=== PATIENT | male | born 1955 | race Caucasian/White ===

== ENCOUNTER 2017-11-13 05:30 | Inpatient (IN) ==
--- NOTE | 2017-11-13 05:58 | Emergency Department Note ---
Disposition Clinical Impression: Right ear pain, Weakness Disposition: Still a Patient Condition: Good [facility] Care Provider[facility] - Forms: ED Satisfaction Letter Time of Disposition: 06:13 General Adult HPI - General Chief complaint: ED Dizziness Stated complaint: dizziness Time Seen by Provider: 11/13/17 05:31 Source: patient, EMS Limitations: no limitations Nursing Notes Reviewed: Yes Vital Signs Reviewed: Yes - History of Present Illness HPI Narrative: 62-year-old male smoker complains of weakness, and right ear pain. He arrives via squad from [facility]. He states his ear pain started to hurt about a week ago and has become more weak. He describes sensation of dizziness with the room spinning, and weakness when he goes to stand. He describes fevers chills, and a productive cough. Harish had reported his security professional and the prison called them, and she had reported patient has been more confused and dizzy the past week. Nursing reports that they also reported patient is at his baseline specifically with his unsteady gait. He denies near syncopal symptoms , chest pain, abdominal pain, weakness, vision changes, speech changes, injuries or falls. Pain Scale: 0 - Related Data Allergies Allergy/AdvReac Type Severity Reaction Status Date / Time No Known Allergies Allergy Verified 08/15/16 16:54 All systems ED: reviewed and negative except as stated. Review of Systems: As Per HPI Constitutional: Reports: as per HPI Eyes: Denies: vision change ENT ED: Reports: as per HPI Cardiovascular: Denies: chest pain, palpitations Respiratory: Denies: dyspnea Gastrointestinal: Denies: abdominal pain, nausea, vomiting, diarrhea, constipation Genitourinary: Denies: dysuria Musculoskeletal: Denies: back pain Integumentary: Denies: rash Neurological: Denies: headache, weakness, numbness, paresthesias Psychiatric: Denies: anxiety Endocrine: Denies: fatigue Hematological/Lymphatic: Denies: easy bleeding Allergic/Immunologic: Denies: facial swelling Past Medical History - Past Medical History Medical history: Reports: COPD, coronary artery disease, GERD, hyperlipidemia, hypertension, renal disease, syncope, other Psychiatric history: Reports: anxiety, depression, schizophrenia - Social History Smoking Status: Current every day smoker Smokeless Tobacco Status: No Alcohol use: Reports: none Drug use: Reports: none Physical Exam - General Limitations: no limitations General appearance: alert, in no apparent distress - Head Head exam: atraumatic, normocephalic - Eye Eye exam: Present: EOMI. Absent: conjunctival injection - ENT ENT exam: normal oropharynx, mucous membranes moist - Expanded ENT Exam TM/Canal: Canal tenderness: Right TM - Neck Neck exam: Present: normal inspection. Absent: full ROM, tenderness, meningismus, lymphadenopathy - Chest Chest inspection: Present: symmetric chest wall rise - Respiratory Respiratory exam: Present: normal lung sounds bilaterally. Absent: respiratory distress, wheezes, stridor, accessory muscle use - Cardiovascular Cardiovascular exam: Present: regular rate, normal rhythm - Abdominal Exam Abdominal exam: Present: soft, Non-Tender - Extremities Exam Extremities exam: Present: normal capillary refill. Absent: tenderness - Back Exam Back exam: Present: full ROM. Absent: tenderness - Neurological Exam Neurological exam: Present: alert, oriented X3 - Psychiatric Psychiatric exam: Present: normal mood, flat affect - Skin Skin exam: Present: warm, dry, intact, normal color. Absent: rash, cyanosis, diaphoresis Course Course Narrative: Pt arrives via squad from prison. 62yo male smoker c/o weakness, R ear pain. Nursing reports patient has some chronic gait instability and urinary incontinence, and squad reports one of pt's caregivers reports this is baseline , but it is reported he has been more confused. Pt c/o right ear pain and weakness x1week. Otherwise no other concerns. Pt seen and examined. He is alert and oriented x3, and in no acute distress. Somewhat listless but responding appropriately. Abdomen nontender, lungs CTA, HRRR. No extremity weakness, facial asymetry. He denies CP, SOB, abdominal pain. Vitals today within normal limits. Bloodwork, EKG, UA, CXR orderd. Pt discussed with oncoming dayshift provider Hiram Waters CNP. Due to shift change Hiram will be taking over care of patient. Please see his documentation for details and final disposition. Vital Signs Temperature 98.8 F 11/13/17 05:34 Pulse Rate 96 11/13/17 05:34 Respiratory Rate 16 11/13/17 05:34 Blood Pressure 119/72 11/13/17 05:34 O2 Sat by Pulse Oximetry 92 11/13/17 05:34 Temperature 98.8 F 11/13/17 05:34 Pulse Rate 96 11/13/17 05:34 Respiratory Rate 16 11/13/17 05:34 Blood Pressure 119/72 11/13/17 05:34 O2 Sat by Pulse Oximetry 92 11/13/17 05:34 Oxygen Delivery Oxygen Delivery Room Air S.B.AJustin - SPatti.AJustin Situation: Demographics, MOA Background: Presenting Complaint Assessment: Vital Signs, Exam Concerns, Outstanding Labs Recommendation: Recommendation based on pending studies, treatments, or consults S.B.A.RHoma Report Given to: Hiram Waters CNP S.B.AJustin Repor Time: 06:06
--- NOTE | 2017-11-13 06:24 | Emergency Department Note ---
Disposition Clinical Impression: Dizziness, Weakness generalized, Unsteady gait, Frequent falls Disposition: Admitted As Inpatient Condition: Fair [facility] Care Provider[facility] - Forms: ED Satisfaction Letter Time of Disposition: 10:28 General Adult HPI - General Chief complaint: ED Dizziness Stated complaint: dizziness Time Seen by Provider: 11/13/17 05:31 Source: patient, EMS Limitations: no limitations - History of Present Illness Pain Scale: 0 - Related Data Allergies Allergy/AdvReac Type Severity Reaction Status Date / Time No Known Allergies Allergy Verified 08/15/16 16:54 Constitutional: Reports: as per HPI Eyes: Denies: vision change ENT ED: Reports: as per HPI Cardiovascular: Denies: chest pain, palpitations Respiratory: Denies: dyspnea Gastrointestinal: Denies: abdominal pain, nausea, vomiting, diarrhea, constipation Genitourinary: Denies: dysuria Musculoskeletal: Denies: back pain Integumentary: Denies: rash Neurological: Denies: headache, weakness, numbness, paresthesias Psychiatric: Denies: anxiety Endocrine: Denies: fatigue Hematological/Lymphatic: Denies: easy bleeding Allergic/Immunologic: Denies: facial swelling Past Medical History - Past Medical History Medical history: Reports: COPD, coronary artery disease, GERD, hyperlipidemia, hypertension, renal disease, syncope, other Psychiatric history: Reports: anxiety, depression, schizophrenia - Social History Smoking Status: Current every day smoker Smokeless Tobacco Status: No Alcohol use: Reports: none Drug use: Reports: none Physical Exam - General Limitations: no limitations General appearance: alert, in no apparent distress Course Course Narrative: 0600: I assumed care of this patient from [facility] due to mid-level shift change. Please see Juanjo's documentation for any care performed prior to my arrival. Briefly, this is alert and oriented 62-year-old male arrives by squad from an outside residential with complaints of weakness, dizziness, and right ear pain for the past one week. The patient stated that there was a sensation of dizziness and the room was spinning whenever he attempted to stand up. He denied any chest pain, shortness of breath, abdominal pain, weakness of the extremities, lower vision, speech deficits, or any injury/fall/trauma. He did complain of subjective fevers, chills, and a productive cough for the past several days. Vital Signs Temperature 98.8 F 11/13/17 05:34 Pulse Rate 96 11/13/17 05:34 Respiratory Rate 16 11/13/17 05:34 Blood Pressure 119/72 11/13/17 05:34 O2 Sat by Pulse Oximetry 92 11/13/17 05:34 Temperature 98.8 F 11/13/17 05:34 Pulse Rate 84 11/13/17 09:14 Respiratory Rate 18 11/13/17 09:14 Blood Pressure 96/48 11/13/17 09:14 O2 Sat by Pulse Oximetry 94 11/13/17 09:14 Oxygen Delivery Oxygen Delivery Nasal Cannula Medical Decision Making - MDM Narrative Medical decision making narrative: The patient does have a history of vertigo. His symptoms seem vertiginous in nature. He describes a sensation of his surroundings spinning upon positional changes. When the patient's nurse attempted to perform orthostatic vital signs , she stated that the patient was extremely weak, she had to assist him from the bed to a standing position. She stated that he was extremely unsteady on his feet. The social service liaison at the [facility] states that she has been told patient has had multiple falls as of lately. Our social service liaison here has attempted to place the patient into the rehabilitation unit at the [facility] however he will need an official PT/OT evaluation in-house here prior to. His workup has been benign aside from a mildly decreased potassium level which has been corrected. We will admit to the hospital service for a PT OT evaluation and observation. I discussed this plan with Dr. Rodriguez. Dr. Rodriguez has had a [id number] evaluation and agrees with this plan. I spoke with Dr. Avendano of the hospitalist service who is agreed to accept the patient for admission under his care. - Medical Records Medical records reviewed: Yes I reviewed the patient's medical records. - Lab Data Lab results reviewed: Yes I reviewed the patient's lab results. Lab results narrative: Laboratory Last Values WBC 7.5 K/mcL (4.3-11.1) 11/13/17 06:29 RBC 3.06 M/mcL (4.19-5.50) L 11/13/17 06:29 Hgb 10.1 g/dL (12.9-16.9) L 11/13/17 06:29 Hct 30.5 % (37.5-50.1) L 11/13/17 06:29 MCV 99.7 fL (83.0-100.0) 11/13/17 06:29 MCH 33.0 pg (28.0-33.3) 11/13/17 06:29 MCHC 33.1 g/dL (31.6-35.5) 11/13/17 06:29 RDW 12.3 % (11.5-14.5) 11/13/17 06:29 Plt Count 80 K/mcL (140-400) L 11/13/17 06:29 MPV 9.5 fL (9.4-12.4) 11/13/17 06:29 Immature Gran % 0.5 % (0-4) 11/13/17 06: Seg Neutrophils % 54.5 % 11/13/17 06:29 Lymphocytes % 19.5 % 11/13/17 06:29 Monocytes % 25.1 % 11/13/17 06:29 Eosinophils % 0.1 % 11/13/17 06: Basophils % 0.3 % 11/13/17 06:29 Neutrophils # 4.1 K/mcL (1.6-8.9) 11/13/17 06:29 Lymphocytes # 1.5 K/mcL (0.6-4.6) 11/13/17 06:29 Monocytes # 1.9 K/mcL (0.0-1.3) H 11/13/17 06:29 Eosinophils # 0.0 K/mcL (0.0-0.6) 11/13/17 06:29 Basophils # 0.0 K/mcL (0.0-0.2) 11/13/17 06:29 Platelet Estimate Decreased (Normal) L 11/13/17 06:29 Immature Plt Fraction 1.5 % (1.1-6.1) 11/13/17 06:29 Sodium 137 mEq/L (136-145) 11/13/17 06:29 Potassium 3.3 mEq/L (3.5-5.1) L 11/13/17 06:29 Chloride 109 mEq/L (98-107) H 11/13/17 06:29 Carbon Dioxide 25 mEq/L (23-29) 11/13/17 06:29 BUN 17 mg/dL (8-23) 11/13/17 06:29 Creatinine 1.52 mg/dL (0.70-1.30) H 11/13/17 06:29 Est GFR ( Amer) 56 (> 60) L 11/13/17 06:29 Est GFR (Non-Af Amer) 47 (> 60) L 11/13/17 06:29 BUN/Creatinine Ratio 11 (6-26) 11/13/17 06:29 Glucose 114 mg/dL (70-105) H 11/13/17 06:29 Calculated Osmolality 286 (280-300) 11/13/17 06:29 Lactic Acid 1.0 mmol/L (0.5-2.2) 11/13/17 06:31 Calcium 8.4 mg/dL (8.6-10.3) L 11/13/17 06:29 Total Bilirubin 0.9 mg/dL (0.3-1.0) 11/13/17 06:29 Direct Bilirubin 0.3 mg/dL (0.0-0.2) H 11/13/17 06:29 Indirect Bilirubin 0.6 mg/dL (0.0-1.2) 11/13/17 06:29 AST 10 Units/L (13-39) L 11/13/17 06:29 ALT 5 Units/L (7-52) L 11/13/17 06:29 Alkaline Phosphatase 43 Units/L (34-104) 11/13/17 06:29 Troponin I < 0.03 ng/mL (< 0.04) 11/13/17 06:29 Serum Total Protein 6.0 g/dL (6.4-8.9) L 11/13/17 06:29 Albumin 3.2 g/dL (3.5-5.7) L 11/13/17 06:29 Globulin 2.8 g/dL (2.4-3.5) 11/13/17 06:29 Albumin/Globulin Ratio 1.1 (1.1-2.2) 11/13/17 06:29 Urine Color Yellow (Yellow) 11/13/17 07:54 Urine Clarity Clear (Clear) 11/13/17 07:54 Urine pH 6.0 pH Units (5.0-8.0) 11/13/17 07:54 Ur Specific [place] 1.009 (1.010-1.025) L 11/13/17 07:54 Urine Protein 30 mg/dL (Neg-Trace) H 11/13/17 07:54 Urine Glucose (UA) Normal mg/dL (Normal) 11/13/17 07:54 Urine Ketones Negative mg/dL (Negative) 11/13/17 07:54 Urine Blood Moderate (Negative) H 11/13/17 07:54 Urine Nitrite Negative (Negative) 11/13/17 07:54 Urine Bilirubin Negative (Negative) 11/13/17 07:54 Urine Urobilinogen Normal mg/dL (Normal) 11/13/17 07:54 Ur Leukocyte Esterase Negative (Negative) 11/13/17 07:54 Urine Microscopic RBC 5-15 per hpf (0-3) H 11/13/17 07:54 Urine Microscopic WBC 5-15 per hpf (0-3) H 11/13/17 07:54 Ur Squamous Epith Cells Many per lpf (None-Few) H 11/13/17 07:54 Urine Bacteria None Seen per hpf (None-Few) 11/13/17 07:54 Hyaline Casts None Seen per lpf (None-Few) 11/13/17 07:54 Ur Culture Indicated? NO (NO) 11/13/17 07:54 Stool Occult Blood Negative (Negative) 11/13/17 08:02 Result diagrams: 11/13/17 06:29 11/13/17 06:29 Lab Results 11/13/17 11/13/17 11/13/17 Range/Units 06:29 06:29 06:29 WBC 7.5 (4.3-11.1) K/mcL RBC 3.06 L (4.19-5.50) M/mcL Hgb 10.1 L (12.9-16.9) g/dL Hct 30.5 L (37.5-50.1) % MCV 99.7 (83.0-100.0) fL MCH 33.0 (28.0-33.3) pg MCHC 33.1 (31.6-35.5) g/dL RDW 12.3 (11.5-14.5) % Plt Count 80 L (140-400) K/mcL MPV 9.5 (9.4-12.4) fL Immature Gran % 0.5 (0-4) % Seg Neutrophils % 54.5 % Lymphocytes % 19.5 % Monocytes % 25.1 % Eosinophils % 0.1 % Basophils % 0.3 % Neutrophils # 4.1 (1.6-8.9) K/mcL Lymphocytes # 1.5 (0.6-4.6) K/mcL Monocytes # 1.9 H (0.0-1.3) K/mcL Eosinophils # 0.0 (0.0-0.6) K/mcL Basophils # 0.0 (0.0-0.2) K/mcL Platelet Estimate Decreased L (Normal) Immature Plt Fraction 1.5 (1.1-6.1) % Sodium 137 (136-145) mEq/L Potassium 3.3 L (3.5-5.1) mEq/L Chloride 109 H (98-107) mEq/L Carbon Dioxide 25 (23-29) mEq/L BUN 17 (8-23) mg/dL Creatinine 1.52 H (0.70-1.30) mg/dL Est GFR ( Amer) 56 L (> 60) Est GFR (Non-Af Amer) 47 L (> 60) BUN/Creatinine Ratio 11 (6-26) Glucose 114 H (70-105) mg/dL Calculated Osmolality 286 (280-300) Lactic Acid (0.5-2.2) mmol/L Calcium 8.4 L (8.6-10.3) mg/dL Total Bilirubin 0.9 (0.3-1.0) mg/dL Direct Bilirubin 0.3 H (0.0-0.2) mg/dL Indirect Bilirubin 0.6 (0.0-1.2) mg/dL AST 10 L (13-39) Units/L ALT 5 L (7-52) Units/L Alkaline Phosphatase 43 (34-104) Units/L Troponin I < 0.03 (< 0.04) ng/mL Serum Total Protein 6.0 L (6.4-8.9) g/dL Albumin 3.2 L (3.5-5.7) g/dL Globulin 2.8 (2.4-3.5) g/dL Albumin/Globulin Ratio 1.1 (1.1-2.2) Urine Color (Yellow) Urine Clarity (Clear) Urine pH (5.0-8.0) pH Units Ur Specific [place] (1.010-1.025) Urine Protein (Neg-Trace) mg/dL Urine Glucose (UA) (Normal) mg/dL Urine Ketones (Negative) mg/dL Urine Blood (Negative) Urine Nitrite (Negative) Urine Bilirubin (Negative) Urine Urobilinogen (Normal) mg/dL Ur Leukocyte Esterase (Negative) Urine Microscopic RBC (0-3) per hpf Urine Microscopic WBC (0-3) per hpf Ur Squamous Epith Cells (None-Few) per lpf Urine Bacteria (None-Few) per hpf Hyaline Casts (None-Few) per lpf Ur Culture Indicated? (NO) Stool Occult Blood (Negative) 11/13/17 11/13/17 11/13/17 Range/Units 06:31 07:54 08:02 WBC (4.3-11.1) K/mcL RBC (4.19-5.50) M/mcL Hgb (12.9-16.9) g/dL Hct (37.5-50.1) % MCV (83.0-100.0) fL MCH (28.0-33.3) pg MCHC (31.6-35.5) g/dL RDW (11.5-14.5) % Plt Count (140-400) K/mcL MPV (9.4-12.4) fL Immature Gran % (0-4) % Seg Neutrophils % % Lymphocytes % % Monocytes % % Eosinophils % % Basophils % % Neutrophils # (1.6-8.9) K/mcL Lymphocytes # (0.6-4.6) K/mcL Monocytes # (0.0-1.3) K/mcL Eosinophils # (0.0-0.6) K/mcL Basophils # (0.0-0.2) K/mcL Platelet Estimate (Normal) Immature Plt Fraction (1.1-6.1) % Sodium (136-145) mEq/L Potassium (3.5-5.1) mEq/L Chloride (98-107) mEq/L Carbon Dioxide (23-29) mEq/L BUN (8-23) mg/dL Creatinine (0.70-1.30) mg/dL Est GFR ( Amer) (> 60) Est GFR (Non-Af Amer) (> 60) BUN/Creatinine Ratio (6-26) Glucose (70-105) mg/dL Calculated Osmolality (280-300) Lactic Acid 1.0 (0.5-2.2) mmol/L Calcium (8.6-10.3) mg/dL Total Bilirubin (0.3-1.0) mg/dL Direct Bilirubin (0.0-0.2) mg/dL Indirect Bilirubin (0.0-1.2) mg/dL AST (13-39) Units/L ALT (7-52) Units/L Alkaline Phosphatase (34-104) Units/L Troponin I (< 0.04) ng/mL Serum Total Protein (6.4-8.9) g/dL Albumin (3.5-5.7) g/dL Globulin (2.4-3.5) g/dL Albumin/Globulin Ratio (1.1-2.2) Urine Color Yellow (Yellow) Urine Clarity Clear (Clear) Urine pH 6.0 (5.0-8.0) pH Units Ur Specific [place] 1.009 L (1.010-1.025) Urine Protein 30 H (Neg-Trace) mg/dL Urine Glucose (UA) Normal (Normal) mg/dL Urine Ketones Negative (Negative) mg/dL Urine Blood Moderate H (Negative) Urine Nitrite Negative (Negative) Urine Bilirubin Negative (Negative) Urine Urobilinogen Normal (Normal) mg/dL Ur Leukocyte Esterase Negative (Negative) Urine Microscopic RBC 5-15 H (0-3) per hpf Urine Microscopic WBC 5-15 H (0-3) per hpf Ur Squamous Epith Cells Many H (None-Few) per lpf Urine Bacteria None Seen (None-Few) per hpf Hyaline Casts None Seen (None-Few) per lpf Ur Culture Indicated? NO (NO) Stool Occult Blood Negative (Negative) - Radiology Data Radiology results reviewed: Yes I reviewed the patient's radiology results. Chest X-Ray 11/13/17 06:03 IMPRESSION: Low lung volume study without acute process. D/ / Camille Lau MD / Camille Lau MD Interpreting Provider: Camille Lau MD Head CT 11/13/17 09:14 IMPRESSION: No evidence of acute intracranial abnormality. D/ / 11/13/2017 10:08:32 Tio Maddox MD / Cheyanne Garcia Interpreting Provider: Tio Maddox MD - EKG Data EKG #1 EKG attestation: Yes I reviewed and interpreted this EKG. EKG results narrative: EKG reviewed by Dr. Hunt as well. EKG shows a sinus rhythm at a rate of 88 bpm. IN interval 139, QRS duration 109, QT/QTc intervals 281/326. No ectopy noted. No STEMI. No significant changes compared to an EKG dated from 09/14/14 aside from some flattening of T waves in the lateral leads.
[2017-11-13 06:38] LABS: Basophils % 0.3 %; Eosinophils % 0.1 %; Hematocrit 30.5 % (37.5-50.1)
[2017-11-13 06:40] LABS: Hemoglobin 10.1 g/dL (12.9-16.9); Immature Granulocytes % 0.5 % (0-4); Immature Platelets 1.5 % (1.1-6.1); Lymphocytes # 1.5 K/mcL (0.6-4.6); Lymphocytes % 19.5 %; Mean Corpuscular HGB Conc 33.1 g/dL (31.6-35.5); Mean Corpuscular Volume 99.7 fL (83.0-100.0); Mean Platelet Volume 9.5 fL (9.4-12.4); Monocytes # 1.9 K/mcL (0.0-1.3); Monocytes % 25.1 %; Neutrophils # 4.1 K/mcL (1.6-8.9); Red Blood Count 3.06 M/mcL (4.19-5.50); Red Cell Distribution Width 12.3 % (11.5-14.5); Segmented Neutrophils % 54.5 %
[2017-11-13 06:58] LABS: Albumin 3.2 g/dL (3.5-5.7); Albumin/Globulin Ratio 1.1 (1.1-2.2); Bilirubin,Direct 0.3 mg/dL (0.0-0.2); Bilirubin,Indirect 0.6 mg/dL (0.0-1.2); Bilirubin,Total 0.9 mg/dL (0.3-1.0); Calcium 8.4 mg/dL (8.6-10.3); Globulin 2.8 g/dL (2.4-3.5); Potassium 3.3 mEq/L (3.5-5.1)
[2017-11-13 07:30] LABS: Platelet Count 80 K/mcL (140-400)
[2017-11-13 07:58] LABS: Platelet Estimate Decreased (Normal)
[2017-11-13 08:03] LABS: Bilirubin,Urine Negative (Negative); Blood,Urine Moderate (Negative); Clarity,Urine Clear (Clear); Color,Urine Yellow (Yellow); Glucose,Urine (UA) Normal (Normal); Ketones,Urine Negative (Negative); Leukocyte Esterase,Urine Negative (Negative); Nitrite,Urine Negative (Negative); Protein,Urine 30 mg/dL (Neg-Trace); Specific Gravity,Urine 1.009 (1.010-1.025); Urobilinogen,Urine Normal (Normal)
[2017-11-13] MEDS ORDERED: 0.9 % Sodium Chloride 1,000 ML IVC ONE (08:04)
[2017-11-13 08:05] LABS: Bacteria,Urine None Seen per hpf (None-Few); Hyaline Casts,Urine None Seen per lpf (None-Few); Squamous Epithelial Cell,Urine Many per lpf (None-Few)
[2017-11-13] MEDS ORDERED: Ondansetron 4 MG/2 ML VIAL IVP ONE (10:33)
--- NOTE | 2017-11-13 10:33 | Emergency Department Note ---
START Narrative - START START: I examined this patient and my medical decision-making was reviewed with the Resident Physician. I agree with the documented findings, disposition and treatment plan as described except to the extent set forth below. 62-year-old male presents to emergency room for dizziness and vertigo. Patient states he is unable to get around well at home as he feels too dizzy to even walk. His a history of vertigo symptoms in the past. His workup in the ER is essentially unremarkable. Imaging was negative. Patient is unable to care for himself well at home. Patient will be admitted for treatment of this dizziness and vertigo continued workup and possible PT OT consult.
--- NOTE | 2017-11-13 10:44 | Internal Med History&Physical ---
Date of Encounter: 11/13/17 Time of Encounter: 10:40 Assessment and Plan (1) COPD (chronic obstructive pulmonary disease) Current visit: Yes Status: Chronic No active wheezing Qualifiers: COPD type: emphysema Emphysema type: unspecified Qualified Code(s): J43.9 - Emphysema, unspecified (2) HTN (hypertension) Current visit: Yes Status: Chronic We will control blood pressure is low Qualifiers: Hypertension type: essential hypertension Qualified Code(s): I10 - Essential (primary) hypertension (3) CKD (chronic kidney disease) Current visit: Yes Status: Chronic IV hydration Qualifiers: Chronic kidney disease stage: stage 2 (mild) Qualified Code(s): N18.2 - Chronic kidney disease, stage 2 (mild) (4) Anxiety with depression Current visit: Yes Status: Chronic Chronic with history of schizophrenia (5) Hypokalemia Current visit: Yes Status: Acute Has been replaced in the ER will recheck in a.m. (6) Hyperlipidemia Current visit: Yes Status: Chronic Chronic recheck in a.m. Qualifiers: Hyperlipidemia type: pure hypercholesterolemia Qualified Code(s): E78.00 - Pure hypercholesterolemia, unspecified; E78.0 - Pure hypercholesterolemia (7) Dizziness Current visit: Yes Status: Acute Abnormal gait with recurrent fall possible vestibular dysfunction versus posterior circulation TIA (8) Frequent falls Current visit: Yes Status: Acute Recurrent for due to abnormal gait and generalized weakness will obtain PT OT and patient may need rehabilitation (9) Unsteady gait Current visit: Yes Status: Acute Suggestive of posterior circulation dysfunction will obtain MRI and neurology consult Internal Medicine - H&P: HPI Chief complaint: recurrent falls Admitted From: Emergency Dept Plans for Post Hospital Care: Home History of present illness: Mr. Barrientos is a 62 year old male Patient sent from [facility]to Emergency room due to recurrent and frequent falls patient had history of schizophrenia, CK D, vertigo, COPD, CAD , GERD, high cholesterol, hypertension, depression and anxiety Patient has been having unsteady gait and feeling very weak so when he gets up he said he feels very weak and when he tried to walk has unsteady gaits and then falls no syncope s. No vertigo per se and no nausea or vomiting has some fever and a cough which is nonproductive patient had workup in the emergency room here CT of the head was negative he was not hypotensive patient shaking but not typical of Parkinson patient been admitted for follow up evaluation, would need PTOT physical therapy and probably neurology consult. Past Med Surg Social Fam HX - Past Medical History Medical history: COPD, coronary artery disease, GERD, hyperlipidemia, hypertension, renal disease, syncope, other Psychiatric history: anxiety, depression, schizophrenia - Social History Smoking Status: Current every day smoker Smokeless Tobacco Status: No Alcohol use: none Drug use: none Internal Medicine - H&P: Meds 3 Allergy/AdvReac Type Severity Reaction Status Date / Time No Known Allergies Allergy Verified 08/15/16 16:54 All Systems PM: A 10-system review of systems was performed and is negative for pertinent findings except as documented above in the HPI. - Constitutional Constitutional: fatigue, falls - EENT Eyes: no change in vision, no discharge, no pain, no photophobia Nose, mouth and throat: no dysphagia, no nasal discharge, no neck pain, no sore throat - Cardiovascular Cardiovascular ROS IM: no chest pain, no diaphoresis, no dyspnea, no lightheadedness, no palpitations, no syncope - Respiratory Respiratory: cough, dyspnea, no wheezing, no excessive phlegm production - Gastrointestinal Gastrointestinal: no abdominal pain, no diarrhea, no hematemesis, no hematochezia, no melena, no nausea, no vomiting - Integumentary Integumentary IM: no rash, no unusual bruising - Constitutional Vitals: Temp Pulse Resp BP Pulse Ox 98.8 F 84 18 96/48 94 11/13/17 05:34 11/13/17 09:14 11/13/17 09:14 11/13/17 09:14 11/13/17 09:14 General appearance: Present: cooperative, answers questions appropriately - Eye Eye exam: Present: PERRL, conjuntiva pink, sclera anicteric Pupils: Present: PERRL - Respiratory Respiratory exam: Present: CTAB. Absent: accessory muscle use, rales, rhonchi, wheezes - Cardiovascular Cardiovascular exam: Present: RRR, +S1, +S2. Absent: diastolic murmur, gallop, rubs, systolic murmur - GI/Abdominal GI/Abdominal exam: Present: normal bowel sounds, soft, no peritoneal signs. Absent: distended, tenderness - Extremities Exam Extremities exam: Present: warm, radial pulses palpable and symmetrical. Absent : calf tenderness, cyanotic, pedal edema Internal Med - H&P Results - Labs CBC & Chem 7: 11/13/17 06:29 11/13/17 06:29 Labs: Short CBC 11/13/17 Range/Units 06:29 WBC 7.5 (4.3-11.1) K/mcL Hgb 10.1 L (12.9-16.9) g/dL Hct 30.5 L (37.5-50.1) % Plt Count 80 L (140-400) K/mcL Neutrophils # 4.1 (1.6-8.9) K/mcL BMP 11/13/17 06:29 Sodium 137 Potassium 3.3 L Chloride 109 H Carbon Dioxide 25 BUN 17 Creatinine 1.52 H Glucose 114 H Calcium 8.4 L Cardiac Enzymes 11/13/17 Range/Units 06:29 Troponin I < 0.03 (< 0.04) ng/mL Liver Function 11/13/17 Range/Units 06:29 Total Bilirubin 0.9 (0.3-1.0) mg/dL Direct Bilirubin 0.3 H (0.0-0.2) mg/dL AST 10 L (13-39) Units/L ALT 5 L (7-52) Units/L Alkaline Phosphatase 43 (34-104) Units/L Albumin 3.2 L (3.5-5.7) g/dL Urine 11/13/17 Range/Units 07:54 Urine Color Yellow (Yellow) Urine Clarity Clear (Clear) Urine pH 6.0 (5.0-8.0) pH Units Ur Specific [place] 1.009 L (1.010-1.025) Urine Protein 30 H (Neg-Trace) mg/dL Urine Glucose (UA) Normal (Normal) mg/dL - Impressions ITS Impressions Chest X-Ray 11/13/17 06:03 IMPRESSION: Low lung volume study without acute process. D/ / Camille Lau MD / Camille Lau MD Interpreting Provider: Camille Lau MD Head CT 11/13/17 09:14 IMPRESSION: No evidence of acute intracranial abnormality. D/ / 11/13/2017 10:08:32 Tio Maddox MD / Cheyanne Garcia Interpreting Provider: Tio Maddox MD
[2017-11-13] MEDS ORDERED: Naloxone 0.4 MG/ML INJ IVP PRN (10:51)
--- NOTE | 2017-11-13 11:38 | Neurology - Consult Note ---
<Alo Valentine - Last Filed: 11/13/17 15:56> Date of Encounter: 11/13/17 Time of Encounter: 11:34 Assessment and Plan (1) Unsteady gait Current Visit: Yes Status: Acute Patient reports a several week history of dizziness and unsteady on his feet. On exam he does appear somewhat weak globally as well as difficulty on finger to nose and heel to main testing. Patient also noted to have bradykinesis with cogwheel rigidity and mild resting tremor. Parkinson's disease is a strong possibility. Could be indicative of a posterior circulation CVA as well. Medication interaction including neuroleptic malignant syndrome is considered although the patient does not have a fever, confusion, or significant rigidity so this is felt to be less likely. Patient is also noted to have chronic low back pain but no acute changes in his pain in his lower back or new pain in his lower legs make lumbar pathology less likely as well. Agree with obtaining MRI of the brain and MRA of the head and neck. Will check B12, folate, methylmalonic acid as well as CK. Metabolic disorders including electrolyte abnormalities and infection could also be contributing so recommend potassium replacement and workup for possible ongoing infection. (2) Frequent falls Current Visit: Yes Status: Acute (3) Schizophrenia Current Visit: Yes Status: Acute Qualifiers: Schizophrenia type: unspecified Qualified Code(s): F20.9 - Schizophrenia, unspecified History of Present Illness Chief complaint: Weakness HPI: Mr. Barrientos is a 62 year old male with history of schizophrenia, CKD who presents with unsteady gait. Patient states that for the last 3 or 4 weeks he has had dizziness with standing and difficulty walking due to feeling unsteady. He states that this feels as if the room is spinning. States he has never had anything like this before. He states he feels weak in his lower extremities. He denies any headache or sensory changes. Although he is legally blind he denies any changes in his vision. He denies back pain, bowel or bladder dysfunction. Denies fever, chills, chest pain, shortness of breath. Past Med Surg Social Fam HX - Past Medical History Medical history: COPD, coronary artery disease, GERD, hyperlipidemia, hypertension, renal disease, syncope, other Psychiatric history: anxiety, depression, schizophrenia - Social History Smoking Status: Current every day smoker Smokeless Tobacco Status: No Alcohol use: none Drug use: none Medications and Allergies Unable To Obtain [Unable to Obtain] 11/13/17 [History] 3 Allergy/AdvReac Type Severity Reaction Status Date / Time No Known Allergies Allergy Verified 08/15/16 16:54 All Systems: A 10-system review of systems was performed and is negative for pertinent findings except as documented above in the HPI. Physical Examination - Vital Signs Vital Signs: Initial Vital Signs Temp Pulse Resp BP Pulse Ox 98.8 F 96 16 119/72 92 11/13/17 05:34 11/13/17 05:34 11/13/17 05:34 11/13/17 05:34 11/13/17 05:34 - Exam Exam: Patient has some bradykinesia when attempting rapid alternating movements and has difficulty in performing finger-nose testing and [id number] testing. - Constitutional General appearance: comfortable, chronically ill - Neurologic Sensorimotor examination: intact Motor examination - right side: 4/5: deltoids, biceps, triceps, wrist flexion, wrist extension, soaking pits supervisor, hip flexors, tibialis Anterior, quadriceps, toe extension (EHL), plantarflexion Motor examination - left side: 4/5: deltoids, biceps, triceps, wrist flexion, wrist extension, hip flexors, soaking pits supervisor, quadriceps, tibialis Anterior, toe extension (EHL), plantarflexion Detailed sensory examination: intact Reflexes: Biceps: 0, Brachioradialis: 0, Patella: 0, Achilles: 0 Mental Status Examination: awake, alert, oriented to person, oriented to place, oriented to time, follows commands appropriately, answers questions appropriately, no agnosia, no aphasia, no aproxia Cranial nerve examination: EOMI, visual jorge intact, sensory to face intact, mastication intact, no facial asymmetry is present, flexes SCM and trapezius muscles symmetrically with full power, tongue protrudes midline, no atrophy or facial fasiculations present Results - Laboratory Findings CBC and BMP: 11/13/17 06:29 11/13/17 06:29 Abnormal lab findings: Abnormal lab results RBC 3.06 M/mcL (4.19-5.50) L 11/13/17 06:29 Hgb 10.1 g/dL (12.9-16.9) L 11/13/17 06:29 Hct 30.5 % (37.5-50.1) L 11/13/17 06:29 Plt Count 80 K/mcL (140-400) L 11/13/17 06:29 Monocytes # 1.9 K/mcL (0.0-1.3) H 11/13/17 06:29 Platelet Estimate Decreased (Normal) L 11/13/17 06:29 Potassium 3.3 mEq/L (3.5-5.1) L 11/13/17 06:29 Chloride 109 mEq/L (98-107) H 11/13/17 06:29 Creatinine 1.52 mg/dL (0.70-1.30) H 11/13/17 06:29 Est GFR ( Amer) 56 (> 60) L 11/13/17 06:29 Est GFR (Non-Af Amer) 47 (> 60) L 11/13/17 06:29 Glucose 114 mg/dL (70-105) H 11/13/17 06:29 Calcium 8.4 mg/dL (8.6-10.3) L 11/13/17 06:29 Direct Bilirubin 0.3 mg/dL (0.0-0.2) H 11/13/17 06:29 AST 10 Units/L (13-39) L 11/13/17 06:29 ALT 5 Units/L (7-52) L 11/13/17 06:29 Serum Total Protein 6.0 g/dL (6.4-8.9) L 11/13/17 06:29 Albumin 3.2 g/dL (3.5-5.7) L 11/13/17 06:29 Ur Specific [place] 1.009 (1.010-1.025) L 11/13/17 07:54 Urine Protein 30 mg/dL (Neg-Trace) H 11/13/17 07:54 Urine Blood Moderate (Negative) H 11/13/17 07:54 Urine Microscopic RBC 5-15 per hpf (0-3) H 11/13/17 07:54 Urine Microscopic WBC 5-15 per hpf (0-3) H 11/13/17 07:54 Ur Squamous Epith Cells Many per lpf (None-Few) H 11/13/17 07:54 Consult Discharge Plan - Plan [facility]errals[facility]Primary Care Provider[facility] - <Alo Alvares - Last Filed: 11/13/17 16:20> Date of Encounter: 11/13/17 Time of Encounter: 16:05 Assessment and Plan (1) Unsteady gait Current Visit: Yes Status: Acute As above. I believe that we are dealing with 2 unrelated matters. About 8 weeks or so ago he did have complaints of pain with associated dizziness. It is possible that he might have a right external otitis. The right TM was not visualized well however there appears to be excessive erythema in the external canal. He may have otitis media as well. Recommend someone to complete a full assessment of the right ear. I also suspect that he has drug-induced parkinsonism. He does have a history of schizophrenia and has been on neuroleptics in the past. He does have many Parkinsonian features including masked facies, resting tremor, bradykinesia and no amplitude of rapid alternating movements. I did not assess his gait today. We will also rule out the possibility of an acute cerebral infarct. MRI/MRA of the brain. Pending. Further recommendations will be made after the MRI MRA are completed. History of Present Illness HPI: The chart was reviewed, the patient was seen and examined independently. He informed me that about 3 or 4 weeks ago he began experiencing significant right ear pain with associated dizziness. He does describe actual vertigo. He denies any lightheadedness. He denies headaches although he did have right ear pain. Denies numbness tingling or weakness of the face arms or legs. He also admits to be tremulous. The tremors have been present for several months as well. He appears parkinsonian. I did ask him whether or not his gait is different and he confirmed that it is. He gives a fairly lucid history although states that he gets confused from time to time. He cannot tell me his current medications but knows that he has been on neuroleptics in the past. Unfortunately his medicine list is not available to us now currently staff is in the process of trying to obtain this. All Systems: A 10-system review of systems was performed and is negative for pertinent findings except as documented above in the HPI. Physical Examination - Vital Signs Vital Signs: Initial Vital Signs Temp Pulse Resp BP Pulse Ox 98.8 F 96 16 119/72 92 11/13/17 05:34 11/13/17 05:34 11/13/17 05:34 11/13/17 05:34 11/13/17 05:34 - Constitutional General appearance: other (Facies are present.) - Neurologic Detailed motor examination: other (Resting tremor is present intermittently, he does have cogwheel rigidity of both upper extremities.) Cranial Nerve Exam: hearing decreased: Right (Excessive amounts of cerumen present. The external canal appears to be inflammed. TM not appreciable.) Results - Laboratory Findings CBC and BMP: 11/13/17 06:29 11/13/17 06:29 Abnormal lab findings: Abnormal lab results RBC 3.06 M/mcL (4.19-5.50) L 11/13/17 06:29 Hgb 10.1 g/dL (12.9-16.9) L 11/13/17 06:29 Hct 30.5 % (37.5-50.1) L 11/13/17 06:29 Plt Count 80 K/mcL (140-400) L 11/13/17 06:29 Monocytes # 1.9 K/mcL (0.0-1.3) H 11/13/17 06:29 Platelet Estimate Decreased (Normal) L 11/13/17 06:29 Potassium 3.3 mEq/L (3.5-5.1) L 11/13/17 06:29 Chloride 109 mEq/L (98-107) H 11/13/17 06:29 Creatinine 1.52 mg/dL (0.70-1.30) H 11/13/17 06:29 Est GFR ( Amer) 56 (> 60) L 11/13/17 06:29 Est GFR (Non-Af Amer) 47 (> 60) L 11/13/17 06: Glucose 114 mg/dL (70-105) H 11/13/17 06:29 Calcium 8.4 mg/dL (8.6-10.3) L 11/13/17 06:29 Direct Bilirubin 0.3 mg/dL (0.0-0.2) H 11/13/17 06:29 AST 10 Units/L (13-39) L 11/13/17 06:29 ALT 5 Units/L (7-52) L 11/13/17 06:29 Serum Total Protein 6.0 g/dL (6.4-8.9) L 11/13/17 06:29 Albumin 3.2 g/dL (3.5-5.7) L 11/13/17 06:29 Ur Specific [place] 1.009 (1.010-1.025) L 11/13/17 07:54 Urine Protein 30 mg/dL (Neg-Trace) H 11/13/17 07:54 Urine Blood Moderate (Negative) H 11/13/17 07:54 Urine Microscopic RBC 5-15 per hpf (0-3) H 11/13/17 07:54 Urine Microscopic WBC 5-15 per hpf (0-3) H 11/13/17 07:54 Ur Squamous Epith Cells Many per lpf (None-Few) H 11/13/17 07:54
[2017-11-13] MEDS: 0.9 % Sodium Chloride 1,000 ML IVC SCH (13:00)
--- NOTE | 2017-11-13 14:38 | Electrocardiograph Report ---
[place] [id number] Test Date: 2017-11-13 Pat Name: Alo Barrientos Department: [id number] Room: 2A26 Gender: M [employer]: RAMYA : 1955 Requested By: Gatito Segura Order Number: [id number] Reading MD: Guzman Cardenas DO Measurements Intervals [place] Rate: 88 P: 46 OK: 139 QRS: 27 QRSD: 109 T: 29 QT: 281 QTc: 326 Interpretive Statements SINUS RHYTHM POSSIBLE RIGHT VENTRICULAR CONDUCTION DELAY NONSPECIFIC T-WAVE ABNORMALITY Electronically Signed On 11-13-2017 14:36:55 EST by Guzman Cardenas DO
[2017-11-13 16:48] LABS: Folate 5.7 ng/mL (3.0-16.0)
[2017-11-14 03:39] LABS: Hematocrit 30.2 % (37.5-50.1); Mean Corpuscular HGB Conc 33.1 g/dL (31.6-35.5); Mean Corpuscular Hemoglobin 32.8 pg (28.0-33.3); Red Blood Count 3.05 M/mcL (4.19-5.50); Red Cell Distribution Width 12.2 % (11.5-14.5)
[2017-11-14 03:41] LABS: Immature Platelets 1.7 % (1.1-6.1); Mean Platelet Volume 9.4 fL (9.4-12.4)
[2017-11-14 04:21] LABS: Alanine Aminotransferase 6 Units/L (7-52); Albumin 2.9 g/dL (3.5-5.7); Alkaline Phosphatase 45 Units/L (34-104); Aspartate Amino Transferase 12 Units/L (13-39); BUN/Creatinine Ratio 10 (6-26); Bilirubin,Total 0.7 mg/dL (0.3-1.0); Blood Urea Nitrogen 13 mg/dL (8-23); Calcium 8.5 mg/dL (8.6-10.3); Carbon Dioxide 23 mEq/L (23-29); Chloride 109 mEq/L (98-107); Chol/HDL Ratio 4.2 (0-4.9); Cholesterol 101 mg/dL (< 200); Glucose 118 mg/dL (70-105); HDL Cholesterol 24 mg/dL (40-59); LDL Cholesterol,Calculated 58 mg/dL (0-99); Magnesium 1.6 mg/dL (1.6-2.6); Osmolality,Calculated 289 (280-300); Potassium 3.5 mEq/L (3.5-5.1); Sodium 139 mEq/L (136-145); Total Protein 5.9 g/dL (6.4-8.9); Triglycerides 93 mg/dL (< 150); eGFR For African Americans > 60 (> 60); eGFR For Non-African Americans 57 (> 60)
[2017-11-14] MEDS: *HR* Enoxaparin 40 MG/0.4 ML SYRINGE SQ SCH (04:41)
[2017-11-14] MEDS ORDERED: *HR* LORazepam 2 MG/ML VIAL IVP PRN (07:53)
--- NOTE | 2017-11-14 07:53 | Neurology Progress Note ---
Date of Encounter: 11/14/17 Time of Encounter: 07:50 Assessment and Plan (1) Unsteady gait Current Visit: Yes Status: Acute (2) Drug-induced Parkinson's disease Current Visit: Yes Status: Acute Patient is manifesting signs of Parkinson's disease. This is likely due to the dopaminergic antagonism of the antipsychotic regimen. Unfortunately in these cases although in theory it seems neurological, generally we add on carbidopa levodopa. He is also on ropinirole for symptoms of restless leg syndrome. This patient generally gets his care from the [place] [facility]. Upon discharge he should follow up with his [place] physician for further management of his drug-induced Parkinson's disease. Certainly if the [place] gives approval would be my pleasure to manage him in my office. In addition, the MRI/MRA scans of the brain were unrevealing. There is no evidence of an acute infarct. The only other issue pending his his right ear pain which I feel may be due to right otitis. I will defer further management of this to your discretion. I will reevaluate him at your request. If the choice is made to start carbidopa/levodopa I would begin with 25/100 mg twice a day. Subjective Interval history: The chart was reviewed, the patient was seen and examined. He states that he was somewhat restless to overnight. However he is awake and alert currently able to follow commands and answer questions appropriately. In the interim we have obtained his list from the [facility] which does list risperdone as well as ropinerole both. He is currently in no acute distress however I am convinced that he has drug-induced parkinsonism. He has not had any psychotic symptoms since admission however. Apparently his schizophrenia is controlled. The MRI/MRA scan of the brain is unrevealing. There is no evidence of an acute infarct. Objective - Constitutional Vitals: Temp Pulse Resp BP Pulse Ox 100.1 F H 106 18 129/70 91 11/14/17 06:29 11/14/17 06:29 11/14/17 06:29 11/14/17 06:29 11/14/17 06:29 - Neurological Exam Sensorimotor examination: Present: intact Motor Examination: Present: other (Resting tremor is present intermittently, he does have cogwheel rigidity of both upper extremities.) Motor examination - left side: 4/5: deltoids, biceps, triceps, wrist flexion, wrist extension, hip flexors, bridge painter, quadriceps, tibialis Anterior, toe extension (EHL), plantarflexion Sensation intact: Present: intact Mental Status Examination: Present: awake, alert, oriented to person, oriented to place, oriented to time, follows commands appropriately, answers questions appropriately, no agnosia, no aphasia, no aproxia Cranial nerve examination: Present: EOMI, visual jorge intact, sensory to face intact, mastication intact, no facial asymmetry is present, flexes SCM and trapezius muscles symmetrically with full power, tongue protrudes midline, no atrophy or facial fasiculations present Cranial Nerve Exam: hearing decreased: Right (Excessive amounts of cerumen present. The external canal appears to be inflammed. TM not appreciable.) Additional comments: Neurologic exam today finds that the patient is awake and alert he is watching television. He makes direct eye contact he engages appropriately. Follows commands and answers questions appropriately. He does have a resting tremor of the right upper extremity today. He does have masked facies as well as cogwheel rigidity of both upper extremities. I did not ambulate him. He has good strength of the upper and lower extremities throughout. Results - Laboratory Findings CBC and BMP: 11/14/17 03:14 11/14/17 03:14 Abnormal lab findings: Abnormal lab results RBC 3.05 M/mcL (4.19-5.50) L 11/14/17 03:14 Hgb 10.0 g/dL (12.9-16.9) L 11/14/17 03:14 Hct 30.2 % (37.5-50.1) L 11/14/17 03:14 Plt Count 72 K/mcL (140-400) L 11/14/17 03:14 Monocytes # 1.9 K/mcL (0.0-1.3) H 11/13/17 06:29 Platelet Estimate Decreased (Normal) L 11/13/17 06:29 Chloride 109 mEq/L (98-107) H 11/14/17 03:14 Est GFR (Non-Af Amer) 57 (> 60) L 11/14/17 03:14 Glucose 118 mg/dL (70-105) H 11/14/17 03:14 Calcium 8.5 mg/dL (8.6-10.3) L 11/14/17 03:14 Direct Bilirubin 0.3 mg/dL (0.0-0.2) H 11/13/17 06:29 AST 12 Units/L (13-39) L 11/14/17 03:14 ALT 6 Units/L (7-52) L 11/14/17 03:14 Serum Total Protein 5.9 g/dL (6.4-8.9) L 11/14/17 03:14 Albumin 2.9 g/dL (3.5-5.7) L 11/14/17 03:14 Albumin/Globulin Ratio 1.0 (1.1-2.2) L 11/14/17 03:14 HDL Cholesterol 24 mg/dL (40-59) L 11/14/17 03:14 Ur Specific [place] 1.009 (1.010-1.025) L 11/13/17 07:54 Urine Protein 30 mg/dL (Neg-Trace) H 11/13/17 07:54 Urine Blood Moderate (Negative) H 11/13/17 07:54 Urine Microscopic RBC 5-15 per hpf (0-3) H 11/13/17 07:54 Urine Microscopic WBC 5-15 per hpf (0-3) H 11/13/17 07:54 Ur Squamous Epith Cells Many per lpf (None-Few) H 11/13/17 07:54 Consult Discharge Plan - Plan [facility]errals: [facility] [Primary Care Provider] -
[2017-11-14] MEDS: 0.9 % Sodium Chloride 1,000 ML IVC SCH (11:32)
--- NOTE | 2017-11-14 16:17 | Internal Med Progress Note ---
Date of Encounter: 11/14/17 Time of Encounter: 15:56 - Assessment and plan (1) Drug-induced Parkinson's disease Current Visit: Yes Status: Acute Assessment and plan: Will need to hold Risperidone for now. Hold Ropinerole (used for RLS) because we will be starting Carvidopa/levidopa for drug induced parkinsons, which act similarly and can also provide therapeutic relief. (2) Vertigo Current Visit: Yes Status: Acute (3) Fever Current Visit: Yes Status: Acute Assessment and plan: Unknown cause but suspect this may be related to otitis as seen on MRI. Other infectious sources not very clear at this point. Less likely NMS. Will start patient on Augmentin BID and monitor. Follow-up cultures. Qualifiers: Fever type: unspecified Qualified Code(s): R50.9 - Fever, unspecified (4) Frequent falls Current Visit: Yes Status: Acute Assessment and plan: PT/OT: recommend SNF Drug induced Parkinsons Hold hyoscymine due to anticholinergic effects (5) Schizophrenia Current Visit: Yes Status: Acute Assessment and plan: Hold Risperidone because of adverse side effects. will monitor closely. Qualifiers: Schizophrenia type: unspecified Qualified Code(s): F20.9 - Schizophrenia, unspecified (6) Anxiety with depression Current Visit: Yes Status: Chronic (7) CKD (chronic kidney disease) Current Visit: Yes Status: Chronic Assessment and plan: Medications to be renally dosed. Qualifiers: Chronic kidney disease stage: stage 2 (mild) Qualified Code(s): N18.2 - Chronic kidney disease, stage 2 (mild) (8) COPD (chronic obstructive pulmonary disease) Current Visit: Yes Status: Chronic Qualifiers: COPD type: emphysema Emphysema type: unspecified Qualified Code(s): J43.9 - Emphysema, unspecified (9) HTN (hypertension) Current Visit: Yes Status: Chronic Qualifiers: Hypertension type: essential hypertension Qualified Code(s): I10 - Essential (primary) hypertension (10) Hyperlipidemia Current Visit: Yes Status: Chronic Qualifiers: Hyperlipidemia type: pure hypercholesterolemia Qualified Code(s): E78.00 - Pure hypercholesterolemia, unspecified; E78.0 - Pure hypercholesterolemia - Subjective Interval history: Patient presented to ED from [facility] secondary to recurrent falls, abnormal gait, and weakness without syncope but feels like room is spinning. He has history of schizophrenia on antipsychotic medications. he has bradykinesis and cogwheel rigidity with resting tremor seen on exam. MRI/MRA done brain and neck showed no acute infarct. Neurology service evaluated patient and this is likely drug-induced Parkinson's disease. B12 and Folate wnl PT/OT recommends SNF/ECF Documented history of vertigo Right otitis media? workup for possible ongoing infection sinusitis Has history per records of Impacted cerumen, vertigo, carpal tunnel - Constitutional Vitals: Temp Pulse Resp BP Pulse Ox 99.5 F 101 16 108/63 91 11/14/17 15:08 11/14/17 15:08 11/14/17 15:08 11/14/17 15:08 11/14/17 15:08 General appearance: Present: cooperative, A&O X 3, answers questions appropriately - Head Head exam: Present: atraumatic, normocephalic - Eye Eye exam: Present: PERRL, conjuntiva pink, sclera anicteric Pupils: Present: PERRL - Neck Neck exam general surgery: Present: supple, trachea midline. Absent: lymphadenopathy - Respiratory Respiratory exam: Present: CTAB. Absent: accessory muscle use, rales, rhonchi, wheezes - Cardiovascular Cardiovascular exam: Present: RRR, +S1, +S2. Absent: diastolic murmur, gallop, rubs, systolic murmur - Extremities Exam Extremities exam: Present: warm. Absent: pedal edema, tenderness - Neurological Exam Neurological exam: Present: abnormal gait. Absent: strengths equal and symetr throughout Additional comments: resting tremor - Expanded Neurological Exam Neurological exam expanded: Present: tremor - Skin Skin exam: Present: dry, intact Internal Medicine: Result - Labs CBC & Chem 7: 11/14/17 03:14 11/14/17 03:14 Labs: Short CBC 11/14/17 Range/Units 03:14 WBC 6.4 (4.3-11.1) K/mcL Hgb 10.0 L (12.9-16.9) g/dL Hct 30.2 L (37.5-50.1) % Plt Count 72 L (140-400) K/mcL BMP 11/14/17 03:14 Sodium 139 Potassium 3.5 Chloride 109 H Carbon Dioxide 23 BUN 13 Creatinine 1.27 Glucose 118 H Calcium 8.5 L Cardiac Enzymes 11/13/17 11/13/17 Range/Units 14:59 23:00 Troponin I < 0.03 < 0.03 (< 0.04) ng/mL Liver Function 11/14/17 Range/Units 03:14 Total Bilirubin 0.7 (0.3-1.0) mg/dL AST 12 L (13-39) Units/L ALT 6 L (7-52) Units/L Alkaline Phosphatase 45 (34-104) Units/L Albumin 2.9 L (3.5-5.7) g/dL - Impressions Impressions Head MRA 11/13/17 10:58 IMPRESSION: Normal MRA of the head. D/ / Paul Reyes / Paul Reyes Interpreting Provider: Paul Reyes Neck MRA 11/13/17 10:58 IMPRESSION: Normal MRA of the neck. D/ / Paul Reyes / Paul Reyes Interpreting Provider: Paul Reyes Brain MRI 11/13/17 10:59 IMPRESSION: 1. No acute intracranial abnormality. 2. Right mastoid effusion. D/ / Paul Reyes / Paul Reyes Interpreting Provider: Paul Reyes Consult Discharge Plan - Plan [facility]errals: [facility] Provider[facility] - 11/21/17 2:30 pm (Please follow up as schedule..)
[2017-11-14 18:05] LABS: % Iron Saturation 5 % (20-55); Iron 13 mcg/dL (65-175); Transferrin 172 mg/dL (203-362)
[2017-11-14] MEDS: Gabapentin 300 MG CAPSULE PO SCH (20:19)
[2017-11-14] MEDS: Sennosides/Docusate Sodium TABLET PO SCH (20:19)
[2017-11-14] MEDS: Carbidopa/Levodopa 25/100 TABLET PO SCH (20:20)
[2017-11-14] MEDS ORDERED: Latanoprost 2.5 ML BOTTLE BOTH EYES SCH (21:00)
[2017-11-14] MEDS ORDERED: Divalproex (24 HR) 500 MG TABLET PO SCH (21:00)
[2017-11-14] MEDS ORDERED: Temazepam 15 MG CAPSULE PO SCH (21:00)
[2017-11-15 05:31] LABS: Basophils % 0.4 %; Eosinophils % 0.4 %; Hemoglobin 9.3 g/dL (12.9-16.9); Mean Corpuscular Volume 99.3 fL (83.0-100.0); Mean Platelet Volume 9.4 fL (9.4-12.4)
[2017-11-15] MEDS: *HR* Enoxaparin 40 MG/0.4 ML SYRINGE SQ SCH (05:32)
[2017-11-15 05:33] LABS: Hematocrit 27.8 % (37.5-50.1); Immature Granulocytes % 1.5 % (0-4); Lymphocytes # 1.8 K/mcL (0.6-4.6); Lymphocytes % 23.2 %; Mean Corpuscular HGB Conc 33.5 g/dL (31.6-35.5); Mean Corpuscular Hemoglobin 33.2 pg (28.0-33.3); Monocytes # 1.7 K/mcL (0.0-1.3); Monocytes % 22.1 %; Nucleated Red Blood Cells 0.3 /100 WBC (0); Red Cell Distribution Width 12.5 % (11.5-14.5); Segmented Neutrophils % 52.4 %
[2017-11-15 06:03] LABS: Platelet Count 82 K/mcL (140-400)
[2017-11-15 06:29] LABS: Platelet Estimate Decreased (Normal)
[2017-11-15 07:14] LABS: BUN/Creatinine Ratio 12 (6-26); Blood Urea Nitrogen 15 mg/dL (8-23); Calcium 8.3 mg/dL (8.6-10.3); Carbon Dioxide 21 mEq/L (23-29); Chloride 112 mEq/L (98-107); Glucose 98 mg/dL (70-105); Osmolality,Calculated 291 (280-300); Potassium 3.5 mEq/L (3.5-5.1); Sodium 140 mEq/L (136-145); eGFR For African Americans > 60 (> 60); eGFR For Non-African Americans 58 (> 60)
[2017-11-15] MEDS: Sennosides/Docusate Sodium TABLET PO SCH (10:14)
[2017-11-15] MEDS: Carbidopa/Levodopa 25/100 TABLET PO SCH (10:14)
[2017-11-15] MEDS: Gabapentin 300 MG CAPSULE PO SCH (10:14)
--- NOTE | 2017-11-15 10:37 | Discharge Summary ---
Date of Encounter: 11/15/17 Time of Encounter: 10:35 - Discharge Diagnosis (1) Drug-induced Parkinson's disease Priority: Primary Status: Acute (2) Gout of wrist Priority: Secondary Status: Acute Qualifiers: Gout etiology: unspecified cause Chronicity: acute Laterality: left Qualified Code(s): M10.9 - Gout, unspecified (3) Vertigo Priority: Secondary Status: Acute (4) Fever Priority: Secondary Status: Acute Qualifiers: Fever type: unspecified Qualified Code(s): R50.9 - Fever, unspecified (5) Frequent falls Priority: Secondary Status: Acute (6) Schizophrenia Priority: Secondary Status: Acute Qualifiers: Schizophrenia type: unspecified Qualified Code(s): F20.9 - Schizophrenia, unspecified (7) Anxiety with depression Priority: Secondary Status: Chronic (8) CKD (chronic kidney disease) Priority: Secondary Status: Chronic Qualifiers: Chronic kidney disease stage: stage 2 (mild) Qualified Code(s): N18.2 - Chronic kidney disease, stage 2 (mild) (9) COPD (chronic obstructive pulmonary disease) Priority: Secondary Status: Chronic Qualifiers: COPD type: emphysema Emphysema type: unspecified Qualified Code(s): J43.9 - Emphysema, unspecified (10) HTN (hypertension) Priority: Secondary Status: Chronic Qualifiers: Hypertension type: essential hypertension Qualified Code(s): I10 - Essential (primary) hypertension (11) Hyperlipidemia Priority: Secondary Status: Chronic Qualifiers: Hyperlipidemia type: pure hypercholesterolemia Qualified Code(s): E78.00 - Pure hypercholesterolemia, unspecified; E78.0 - Pure hypercholesterolemia - Discharge Medications Prescriptions: Amoxicillin/Clavulanate [Augmentin] 875 mg PO BIDWM #14 tablet predniSONE [PredniSONE] 20 mg PO DAILY #7 tablet Home Medications: Albuterol Sulfate [Proventil] 4 mg PO TID 11/13/17 [History] Atorvastatin Calcium [Lipitor] 80 mg PO HS 11/13/17 [History] Buspirone HCl [Buspar] 15 mg PO QAM 11/13/17 [History] Clopidogrel Bisulfate [Plavix] 75 mg PO DAILY 11/13/17 [History] Divalproex (24 HR) [Depakote ER (24 HR)] 1,500 mg PO HS 11/13/17 [History] Gabapentin Enacarbil [Horizant] 300 mg PO BID 11/13/17 [History] Hyoscyamine Sulfate [Levbid] 0.375 mg PO BID 11/13/17 [History] Latanoprost [Xalatan] 1 drop BOTH EYES HS 11/13/17 [History] Omeprazole [PriLOSEC] 20 mg PO BID 11/13/17 [History] Propranolol [Inderal] 5 mg PO BID 11/13/17 [History] Ropinirole HCl [Requip] 1 mg PO HS 11/13/17 [History] Sennosides/Docusate Sodium [Senna Plus] 2 each PO BID 11/13/17 [History] Tamsulosin [Flomax] 0.4 mg PO HS 11/13/17 [History] Temazepam [Restoril] 30 mg PO HS 11/13/17 [History] Amoxicillin/Clavulanate [Augmentin] 875 mg PO BIDWM #14 tablet 11/15/17 [Rx] Carbidopa/Levodopa 25/100 [Sinemet 25/100] 1 each PO BID tablet 11/15/17 [Rx] predniSONE [PredniSONE] 20 mg PO DAILY #7 tablet 11/15/17 [Rx] Allergies/Adverse Reactions: 3 Allergy/AdvReac Type Severity Reaction Status Date / Time No Known Allergies Allergy Verified 08/15/16 16:54 Procedures/tests Complete & Pending: Procedures Performed prior 72 hours Category Date Time Status MR angio head wo con [MR] Routine MRI 11/13/17 10:58 Completed MR angio neck wo/w con [MR] Routine MRI 11/13/17 10:58 Completed MR head/brain wo con [MR] Routine MRI 11/13/17 10:59 Completed Date of admission: 11/13/17 10:51 [facility] care physician[facility] Consults: 11/13/17 11:03 Consult to Neurology [CONS] Routine Consulting Provider: [facility] Reason for Consult: recurrent falls abnormal gait Time Notified: 11:03 Call Completed: No 11/13/17 11:06 Consult to Neurology [CONS] Routine Consulting Provider: [facility] Reason for Consult: recurrent falls abn gait Time Notified: 11:06 Call Completed: Yes OT [Consult to Occupational Therapy] [CONS] Routine Comment: Evaluate, develop and implement POC Reason for Consult: recurrent falls 11/13/17 11:07 Consult to Physical Therapy [CONS] Routine Comment: Evaluate, develop and implement POC Reason for Consult: recurrent falls 11/15/17 07:44 Consult to Exam [facility] [CONS] Routine Reason for SW Consult: needs ecf Discharging clinician: Julian Luevano - Patient Status Disposition: Transfer [facility] Condition: Fair Functional capacity at discharge: uses cane/walker Overall status at discharge: patient is progressing back to baseline - Discharge Instructions Follow Up With: [facility],PCP [Primary Care Provider] - 11/21/17 2:30 pm (Please follow up as schedule..) - Diet and Activity Activity: as per physical therapy Diet: low fat, low cholesterol, low salt diet, other (low purine (gout) diet) Hospital course: Mr. Barrientos is a 62 year old male with history of schizophrenia, CKD, vertigo , COPD, CAD, GERD, from [facility] to ED for history of falls. Patient states that for the last 3 or 4 weeks he has had dizziness with standing and difficulty walking due to feeling unsteady. He states that this feels as if the room is spinning. States he has never had anything like this before. He states he feels weak in his lower extremities. He denies any headache or sensory changes. Although he is legally blind he denies any changes in his vision. He denies back pain, bowel or bladder dysfunction. Denies fever, chills, chest pain, shortness of breath. On exam he appear weak globally as well as difficulty on finger to nose and heel to main testing. Patient also noted to have bradykinesis with cogwheel rigidity and mild resting tremor. Acute CVA was ruled out by MRI. Patient is on risperdone for schizophrenia and also ropinerole. Symptoms are likely drug-induced Parkinson's Disease. He was started on carbidopa/levodopa 25/100 mg BID and both risperdone and ropinerole were discontinued. Patient did have an episode of fever of 101.3 and MRI did show right mastoid effusion and on physical exam he did have erythema of TM membrane with bulging. He was started on Augmentin. Patient has been afebrile since then. Patient also had acute gout flare of his wrist and he will be discharged with 7 days of Prednisone. He was discharged to [facility] in stable condition. To do: - Psychiatric medication to be reviewed by his original prescribing physician, resperdone will be held until then due to side effects. - Patient had low iron levels. Suggest getting a Ferritin level, if it is low, iron deficiency may be the cause of his restless leg syndrome. - Would benefit from an ENT referral - Follow-up of gout of his wrist after one week Prednisone therapy. - Time Spent with Patient Total time spent providing and/or coordinating discharge services: - Constitutional Vitals: Temp Pulse Resp BP Pulse Ox 99.3 F 88 17 138/86 90 11/15/17 07:06 11/15/17 07:06 11/15/17 07:06 11/15/17 07:06 11/15/17 07:06 General appearance: Present: cooperative, A&O X 3, answers questions appropriately Exam: Gen: NAD, AAOx3 CVS: RRR Lungs: CTAB HEENT: right TM bulging and erythematous. Left TM cannot be visualized due to excessive cerumen. Left wrist: tender and slightly swollen. sensation preserved. Pain with passive ROM, no erythema. Right wrist: normal Resting tremor is present intermittently, he does have cogwheel rigidity of both upper extremities. Left side 4/5: deltoids, biceps, triceps, wrist flexion , wrist extension, hip flexors, stone gluer, quadriceps, tibialis Anterior, toe extension (EHL), plantarflexion Sensation: awake, alert, oriented to person, oriented to place, oriented to time , follows commands appropriately, answers questions appropriately, no agnosia, no aphasia, no aproxia CN: Present: EOMI, visual jorge intact, sensory to face intact, mastication intact, no facial asymmetry is present, flexes SCM and trapezius muscles symmetrically with full power, tongue protrudes midline, no atrophy or facial fasiculations present resting tremor of the right upper extremity, cogwheel rigidity of both upper extremities.
[2017-11-15] MEDS ORDERED: predniSONE 20 MG TABLET PO SCH (10:45)
--- NOTE | 2017-11-15 11:05 | Physician Discharge Referral ---
ExtendedCare Referral Info Transfer To: [facility] Provider in Charge after Transfer: Other ([facility]) - Diagnosis (1) Drug-induced Parkinson's disease Priority: Primary Status: Acute (2) Gout of wrist Priority: Secondary Status: Acute (3) Vertigo Priority: Secondary Status: Acute (4) Fever Priority: Secondary Status: Acute (5) Frequent falls Priority: Secondary Status: Acute (6) Schizophrenia Priority: Secondary Status: Acute (7) Anxiety with depression Priority: Secondary Status: Chronic (8) CKD (chronic kidney disease) Priority: Secondary Status: Chronic (9) COPD (chronic obstructive pulmonary disease) Priority: Secondary Status: Chronic (10) HTN (hypertension) Priority: Secondary Status: Chronic (11) Hyperlipidemia Priority: Secondary Status: Chronic - Transfer Medications Prescriptions: Amoxicillin/Clavulanate [Augmentin] 875 mg PO BIDWM #14 tablet predniSONE [PredniSONE] 20 mg PO DAILY #7 tablet Home Medications: Albuterol Sulfate [Proventil] 4 mg PO TID 11/13/17 [History] Atorvastatin Calcium [Lipitor] 80 mg PO HS 11/13/17 [History] Buspirone HCl [Buspar] 15 mg PO QAM 11/13/17 [History] Clopidogrel Bisulfate [Plavix] 75 mg PO DAILY 11/13/17 [History] Divalproex (24 HR) [Depakote ER (24 HR)] 1,500 mg PO HS 11/13/17 [History] Gabapentin Enacarbil [Horizant] 300 mg PO BID 11/13/17 [History] Hyoscyamine Sulfate [Levbid] 0.375 mg PO BID 11/13/17 [History] Latanoprost [Xalatan] 1 drop BOTH EYES HS 11/13/17 [History] Omeprazole [PriLOSEC] 20 mg PO BID 11/13/17 [History] Propranolol [Inderal] 5 mg PO BID 11/13/17 [History] Ropinirole HCl [Requip] 1 mg PO HS 11/13/17 [History] Sennosides/Docusate Sodium [Senna Plus] 2 each PO BID 11/13/17 [History] Tamsulosin [Flomax] 0.4 mg PO HS 11/13/17 [History] Temazepam [Restoril] 30 mg PO HS 11/13/17 [History] Amoxicillin/Clavulanate [Augmentin] 875 mg PO BIDWM #14 tablet 11/15/17 [Rx] Carbidopa/Levodopa 25/100 [Sinemet 25/100] 1 each PO BID tablet 11/15/17 [Rx] predniSONE [PredniSONE] 20 mg PO DAILY #7 tablet 11/15/17 [Rx] Allergies/Adverse Reactions: 3 Allergy/AdvReac Type Severity Reaction Status Date / Time No Known Allergies Allergy Verified 08/15/16 16:54 - Respiratory Orders Smoking Cessation: Smoking cessation has been advised. For more information, call the [place] Tobacco Quit Line at 0-832-ZWSW-NOW. - Diet Orders No Added Salt (NIKKI), No Concentrated Sweets, Cardiac (Low purine diet) CERTIFICATION: I certify that the transfer of the above named patient to an Extended Care Facility is necessary for the continuing treatment of the diagnosis listed. The above information is true and accurate reflection of patient's current condition. Confidential - Redisclosure prohibited without a patient's written consent.
[2017-11-15 11:15] VITALS: BP 110/60
== END 2017-11-15 12:44 | DRG 57 ==
LOC: EMEROO 05:30 → 2ANU 05:30
PROVIDERS: ADMIT Internal Medicine Cardiovascular Disease; ATTEND Internal Medicine

== ENCOUNTER 2020-10-18 19:32 | Observation (INO) ==
[2020-10-18 20:29] LABS: Basophils % 0.5 %; Eosinophils % 0.4 %; Hemoglobin 12.3 g/dL (12.9-16.9); Immature Granulocytes % 0.6 % (0-4); Lymphocytes # 1.4 K/mcL (0.6-4.6); Lymphocytes % 16.9 %; Mean Corpuscular HGB Conc 32.4 g/dL (31.6-35.5); Mean Corpuscular Hemoglobin 33.9 pg (28.0-33.3); Mean Corpuscular Volume 104.7 fL (83.0-100.0); Mean Platelet Volume 10.1 fL (9.4-12.4); Monocytes # 0.9 K/mcL (0.0-1.3); Monocytes % 10.3 %; Neutrophils # 5.9 K/mcL (1.6-8.9); Platelet Count 138 K/mcL (140-400); Red Blood Count 3.63 M/mcL (4.19-5.50); Red Cell Distribution Width 12.4 % (11.5-14.5); Segmented Neutrophils % 71.3 %; White Blood Count 8.3 K/mcL (4.3-11.1)
[2020-10-18 20:44] LABS: BUN/Creatinine Ratio 13 (6-26); Blood Urea Nitrogen 17 mg/dL (8-23); Calcium 9.2 mg/dL (8.6-10.3); Carbon Dioxide 24 mEq/L (23-29); Chloride 110 mEq/L (98-107); Glucose 121 mg/dL (70-105); Osmolality,Calculated 299 (280-300); Potassium 4.1 mEq/L (3.5-5.1); Sodium 143 mEq/L (136-145); eGFR For African Americans > 60 (> 60); eGFR For Non-African Americans 55 (> 60)
[2020-10-18] MEDS ORDERED: Isovue-370 500 ML BOTTLE IVP ONE (21:32)
[2020-10-18] MEDS ORDERED: Ampicillin/Sulbactam 3,000 MG in 0.9 % Sodium Chloride Mini Bag 100 ML IVPB ONE (22:58)
[2020-10-18] MEDS ORDERED: Naloxone 0.4 MG/ML INJ IVP PRN (23:59)
[2020-10-18] MEDS ORDERED: Ondansetron ODT 4 MG TAB.RAPDIS SL PRN (23:59)
[2020-10-19 00:46] LABS: Bilirubin,Urine Negative (Negative); Blood,Urine Small (Negative); Clarity,Urine Clear (Clear); Color,Urine Light-Yellow (Yellow); Glucose,Urine (UA) Normal (Normal); Ketones,Urine Negative (Negative); Leukocyte Esterase,Urine Negative (Negative); Nitrite,Urine Negative (Negative); PH,Urine 6.5 pH Units (5.0-8.0); Protein,Urine 30 mg/dL (Neg-Trace); Specific Gravity,Urine 1.016 (1.010-1.025); Squamous Epithelial Cell,Urine Few per hpf (None-Few); Urobilinogen,Urine Normal (Normal); WBC,Urine 0-3 per hpf (0-3)
[2020-10-19 01:03] LABS: INR 1.1; Prothrombin Time 12.8 Seconds (9.4-12.1)
[2020-10-19 01:06] LABS: Activated Partial Thrombo Time 27.7 Seconds (26.0-36.0)
[2020-10-19] MEDS ORDERED: Ipratropium/Albuterol Neb 3 ML IH PRN (02:37)
[2020-10-19 03:12] LABS: Hematocrit 35.8 % (37.5-50.1); Hemoglobin 12.2 g/dL (12.9-16.9); Mean Corpuscular HGB Conc 34.1 g/dL (31.6-35.5); Mean Corpuscular Hemoglobin 35.4 pg (28.0-33.3); Mean Corpuscular Volume 103.8 fL (83.0-100.0); Mean Platelet Volume 9.9 fL (9.4-12.4); Platelet Count 125 K/mcL (140-400); Red Blood Count 3.45 M/mcL (4.19-5.50); Red Cell Distribution Width 12.5 % (11.5-14.5); White Blood Count 7.7 K/mcL (4.3-11.1)
[2020-10-19 03:31] LABS: Alanine Aminotransferase 8 Units/L (7-52); Albumin 3.6 g/dL (3.5-5.7); Albumin/Globulin Ratio 1.3 (1.1-2.2); Alkaline Phosphatase 66 Units/L (34-104); Aspartate Amino Transferase 12 Units/L (13-39); BUN/Creatinine Ratio 13 (6-26); Bilirubin,Total 0.5 mg/dL (0.3-1.0); Blood Urea Nitrogen 15 mg/dL (8-23); C-Reactive Protein 8 mg/L (Less than 10); Calcium 9.1 mg/dL (8.6-10.3); Carbon Dioxide 22 mEq/L (23-29); Chloride 111 mEq/L (98-107); Globulin 2.8 g/dL (2.4-3.5); Glucose 109 mg/dL (70-105); Magnesium 1.7 mg/dL (1.6-2.6); Osmolality,Calculated 295 (280-300); Phosphorous 2.8 mg/dL (2.7-4.5); Potassium 3.9 mEq/L (3.5-5.1); Sodium 142 mEq/L (136-145); Total Protein 6.4 g/dL (6.4-8.9); eGFR For African Americans > 60 (> 60); eGFR For Non-African Americans > 60 (> 60)
[2020-10-19 04:45] LABS: % Iron Saturation 20 % (20-55); Iron 51 mcg/dL (65-175); Transferrin 181 mg/dL (203-362)
[2020-10-19 05:03] LABS: Ferritin 458 ng/mL (20-250)
[2020-10-19 05:07] LABS: Folate 4.4 ng/mL (3.0-16.0)
[2020-10-19] MEDS: Pantoprazole 40 MG VIAL IVP SCH ×2 (05:45→17:26)
[2020-10-19] MEDS ORDERED: Sennosides/Docusate Sodium TABLET PO SCH (09:00)
[2020-10-19] MEDS ORDERED: Gabapentin 300 MG CAPSULE PO SCH (09:00)
[2020-10-19] MEDS ORDERED: Carbidopa/Levodopa 25/100 TABLET PO SCH (09:00)
[2020-10-19 14:25] VITALS: BP 118/66
[2020-10-19] MEDS ORDERED: rOPINIRole 1 MG TABLET PO SCH (21:00)
[2020-10-19] MEDS ORDERED: Divalproex (24 HR) 500 MG TABLET PO SCH ×2 (21:00)
== END 2020-10-19 19:30 | disposition home or self-care (01) ==
LOC: 3ANU 19:32 → EMEROOARM 19:32 → SUATTDRO 10-19 00:53 → 3ANU 10-19 01:55
PROVIDERS: ADMIT Family Medicine; ATTEND Internal Medicine